=== PATIENT | male | born 1945 | race Caucasian/White ===

== ENCOUNTER 2020-04-01 06:54 | Outpatient (NON) | payer MEDICARE, SELFPAY ==
[2020-04-01 22:32] LABS: SARS-CoV-2 RNA PCR Negative
== END 2020-04-01 06:55 ==
PROVIDERS: PCP Family Medicine Adolescent Medicine; Visit Provider Family Medicine Adolescent Medicine
DX: Z20.828 Contact with and (suspected) exposure to other viral communicable diseases (principal); R05 Cough; R53.83 Other fatigue
CPT/HCPCS: 87635; C9803; U0003

== ENCOUNTER 2021-08-10 01:20 | Day surgery (SDC) | payer MEDICARE, SELFPAY ==
[2021-07-28 14:15] VITALS: BMI 29.2
[2021-08-10 11:12] VITALS: BP 129/72; PULSE 91; RESP 18; TEMP 36.2; O2SAT 98; BMI 29.2
--- NOTE | 2021-08-10 11:18 | WPDGICN ---
Assessment and Plan Assessment and plan (1) Encounter for screening colonoscopy: Code(s): Z12.11 - Encounter for screening for malignant neoplasm of colon Status: Acute Assessment and Plan: Patient presents for screening colonoscopy. Has never had screening previously. Plan is for high-fiber diet. Further recommendations will be given after endoscopy. (2) Rectal bleeding: Code(s): K62.5 - Hemorrhage of anus and rectum Status: Acute Assessment and Plan: Patient has rectal bleeding attributed to hemorrhoids. Plan is for fiber in his diet Metamucil is beneficial in should be continued. Further recommendations may be given after evaluation with colonoscopy. (3) Chronic obstructive pulmonary disease, unspecified: Code(s): J44.9 - Chronic obstructive pulmonary disease, unspecified Status: Acute GI Consult Note Consult date/time: 08/10/21 11:18 HPI: Allen Fields is a 75 year old male Presents for screening colonoscopy. Patient reports his weight appetite bowel movements are normal. He has occasional bright red blood per rectum that often happens at night. This is improved over recent weeks. Patient has never had a screening colonoscopy and presents for that today. Past medical history is significant for COPD. Family history is noncontributory. Review of Systems Review of Systems: All systems reviewed & are unremarkable except as noted in HPI and below PMFSH Past Medical History Medical History Hx of essential hypertension Family History Family History Father Alzheimer's dementia Mother Heart disease Social History Social History Smoking packs per day: 1.5 Smoking cigarettes per day: 30.0 Years smoked: 60 Smoking pack-years: 90.00 Smoking status: Current every day smoker Tobacco type: cigarettes Second hand tobacco smoke exposure: No Alcohol intake: current Drinks per week: 5 Substance use: never Substance use type: does not use Living arrangements: with family Gender identity (if verbalized by the patient): Male Sexual Orientation (if Verbalized by the Patient): Straight or Heterosexual Spiritual care concerns: No Agree to blood products: Yes Meds Home Medications and Allergies Home Medications Medication Instructions Recorded Confirmed Type losartan 100 mg tablet 100 mg PO DAILY 05/26/21 07/28/21 History finasteride 5 mg tablet 5 mg PO DAILY 05/27/21 07/28/21 History tamsulosin 0.4 mg capsule 0.4 mg PO DAILY 05/27/21 07/28/21 History diltiazem HCl 240 mg 240 mg PO DAILY #90 cap 06/07/21 07/28/21 Rx capsule,extended release 24 hr psyllium husk [Metamucil] 1 tbsp PO DAILY 07/28/21 07/28/21 History indapamide 2.5 mg tablet 2.5 mg PO DAILY #90 tablet 08/08/21 08/10/21 Rx metoprolol tartrate 100 mg tablet 100 mg PO BID #180 tablet 08/08/21 08/10/21 Rx simvastatin 20 mg tablet 20 mg PO DAILY #90 tablet 08/08/21 08/10/21 Rx Allergies Allergy/AdvReac Type Severity Reaction Status Date / Time No Known Allergies Allergy Verified 08/10/21 11:11 Vital Signs Vital Signs - 24 hr 08/10/21 11:12 Temperature 97.2 F L Pulse Rate 91 Respiratory Rate 18 Blood Pressure 129/72 Pulse Oximetry 98 Exam Narrative: Physical exam reveals patient to be alert. Vital signs stable. HEENT exam is unremarkable. Patient is anicteric. Lungs are clear to auscultation and percussion. Heart is without murmur or extra sounds. Abdomen bowel sounds present soft nontender with no organomegaly. Digital external rectal exam is normal.
[2021-08-10] MEDS: LACTATED RINGERS 1,000 ML 150 ML IV CONT (11:29)
--- NOTE | 2021-08-10 12:44 | P.PNAN_ITS ---
Anes - Initial Pre Proc Eval Procedure: Operation Date: 08/10/21 12:30 Proposed Procedures p Screening Colonoscopy - Lewis Graff MD Date/Time: 08/10/21 12:44 Surgeon: Lewis Graff MD Pre Op Diagnosis: neoplasm screening Patient Data Age: 75 Gender: M Height: 1.83 m Weight: 97.6 kg Last Vital Signs Temp 97.2 F L 08/10/21 11:12 Pulse 91 08/10/21 11:12 Resp 18 08/10/21 11:12 BP 129/72 08/10/21 11:12 Pulse Ox 98 08/10/21 11:12 Allergies Allergy/AdvReac Type Severity Reaction Status Date / Time No Known Allergies Allergy Verified 08/10/21 11:11 Home Medications Medication Instructions Recorded Confirmed Type losartan 100 mg tablet 100 mg PO DAILY 05/26/21 07/28/21 History finasteride 5 mg tablet 5 mg PO DAILY 05/27/21 07/28/21 History tamsulosin 0.4 mg capsule 0.4 mg PO DAILY 05/27/21 07/28/21 History diltiazem HCl 240 mg 240 mg PO DAILY #90 cap 06/07/21 07/28/21 Rx capsule,extended release 24 hr psyllium husk [Metamucil] 1 tbsp PO DAILY 07/28/21 07/28/21 History indapamide 2.5 mg tablet 2.5 mg PO DAILY #90 tablet 08/08/21 08/10/21 Rx metoprolol tartrate 100 mg tablet 100 mg PO BID #180 tablet 08/08/21 08/10/21 Rx simvastatin 20 mg tablet 20 mg PO DAILY #90 tablet 08/08/21 08/10/21 Rx Patient hx anesthesia problems: none Family hx anesthesia problems: none Results Review: All pre-operative results and documents have been reviewed as part of the pre-operative evaluation. [facility] Past Medical History Medical History Hx of essential hypertension Family History Family History Father Alzheimer's dementia Mother Heart disease Social History Social History Smoking packs per day: 1.5 Smoking cigarettes per day: 30.0 Years smoked: 60 Smoking pack-years: 90.00 Smoking status: Current every day smoker Tobacco type: cigarettes Second hand tobacco smoke exposure: No Alcohol intake: current Drinks per week: 5 Substance use: never Substance use type: does not use Living arrangements: with family Gender identity (if verbalized by the patient): Male Sexual Orientation (if Verbalized by the Patient): Straight or Heterosexual Spiritual care concerns: No Agree to blood products: Yes Anes - Eval Final PreProcedure Day of Procedure 08/10/21 12:44 Patient weight: obese Heart: regular rate and rhythm Lungs: clear to auscultation Airway: Mallampati scale class II Neurological: alert and oriented Last oral intake: >/= 8 hours ASA classification: III Emergent: no Anesthetic plan: proceed Anesthesia type and monitoring: general GIVS and standard monitoring Results Review: All pre-operative results and documents have been reviewed as part of the pre-operative evaluation. Informed Consent: The patient's anesthetic plan and its attendant risks and benefits were discussed with the patient/family/POA. Questions were solicited and answers provided to the satisfaction of the patient/family/POA.
[2021-08-10 13:05] VITALS: BP 102/99; PULSE 79; RESP 24; O2SAT 96
[2021-08-10 13:15] VITALS: BP 112/60; PULSE 87; RESP 26; O2SAT 99
[2021-08-10 13:25] VITALS: BP 131/74; PULSE 74; RESP 22; O2SAT 100
== END 2021-08-10 13:35 | disposition home or self-care (01) ==
PROVIDERS: PCP Family Medicine Adolescent Medicine; Visit Provider Internal Medicine Gastroenterology
PROC: 0DJD8ZZ Inspection of Lower Intestinal Tract, Via Natural or Artificial Opening Endoscopic (ICD-10-PCS; CPT 45378; principal; 2021-08-10 12:30)
DX: Z12.11 Encounter for screening for malignant neoplasm of colon (principal); K62.5 Hemorrhage of anus and rectum; K64.8 Other hemorrhoids; K57.30 Diverticulosis of large intestine without perforation or abscess without bleeding; J44.9 Chronic obstructive pulmonary disease, unspecified; I10 Essential (primary) hypertension; F17.210 Nicotine dependence, cigarettes, uncomplicated; E66.9 Obesity, unspecified; Z68.29 Body mass index [BMI] 29.0-29.9, adult
CPT/HCPCS: G0121; J2704; J7120

== ENCOUNTER 2023-01-31 09:52 | Outpatient (CLI) | payer MEDICARE, SELFPAY ==
--- NOTE | 2023-01-31 10:07 | ECG_ITS ---
Measurements Intervals [place] Rate: 51 P: NV: 0 QRS: -1 QRSD: 115 T: 36 QT: 437 QTc: 405 Interpretive Statements ATRIAL FIBRILLATION WITH SLOW VENTRICULAR RESPONSE LOW QRS VOLTAGE IN EXTREMITY LEADS [QRS DEFLECTION < 0.5 mV IN LIMB LEADS] POSSIBLE ANTERIOR MYOCARDIAL INFARCTION [30 ms Q WAVE IN V3/V4, OR R < 0.2 mV IN V4], PROBABLY OLD ABNORMAL RHYTHM ECG NO PREVIOUS ECG AVAILABLE FOR COMPARISON Electronically Signed On 01-31-2023 15:02:07 CDT by Wilma Kelsey M.D.
[2023-01-31 10:32] LABS: Anion Gap 3 mmol/L (8-16); Blood Urea Nitrogen 9 mg/dL (9-20); Calcium 9.4 mg/dL (8.4-10.2); Carbon Dioxide 35 mmol/L (22-30); Chloride 93 mmol/L (98-107); Estimated Glomerular Filt Rate > 60; Glucose 142 mg/dL (65-110); Potassium 3.7 mmol/L (3.4-5.0); Sodium 131 mmol/L (137-145)
== END 2023-01-31 09:53 | disposition home or self-care (01) ==
PROVIDERS: Anesthesiology; PCP Family Medicine Adolescent Medicine; Visit Provider Surgery
DX: I10 Essential (primary) hypertension (principal); I48.91 Unspecified atrial fibrillation
CPT/HCPCS: 36415; 80048; 93005

== ENCOUNTER 2023-02-03 01:31 | Day surgery (SDC) | payer MEDICARE, SELFPAY ==
--- NOTE | 2023-01-30 15:04 | PC.NURSE ---
Report to the Outpatient Waiting Room, entrance under the green pavilion located off [facility], at time __1100 on date __02/03/23 . Planned Procedure Time: __1300 . Time changes happen often and if your time is changed the preop area will call you the afternoon before. - You and your visitor will be asked to self-screen and do not enter if you have any COVID symptoms. - A mask is optional within the hospital at this time. Patients may have clear liquids (water, carbonated beverages, clear teas, apple juice) until 3 hours prior to surgery with a maximum of 20 ounces. - No food from midnight until time of surgery - Infants may have breast milk until 4 hours before surgery, formula 6 hours prior to surgery. - Children will be allowed to drink immediately following surgery. If applicable, please bring a bottle or sippy cup to assist with drinking. Juice, water, soda, and popsicles are readily available. For infants on formula, please bring formula the day of surgery. Pacifiers are allowed. Take the following medications with a SIP of water the morning of surgery: __DILTIAZEM AND METOPROLOL DO NOT STOP ANY OF YOUR OTHER PRESCRIPTION MEDICATIONS PRIOR TO SURGERY ?EXCEPT THE FOLLOWING Medications to discontinue per physician NONE Please no make-up, nail upper sorbian, hairspray, perfume, deodorant, or body powder the day of surgery. No jewelry (including any body piercings) or valuables the day of surgery, leave them at home. Please take a shower or bath the night before, or the morning of, surgery with an antibacterial soap. Wear comfortable, loose fitting clothing. Children are encouraged to wear pajamas. - Jewelry must be removed prior to entering the operating room. Rings and piercings that are not removed may be cut off. - The hospital will not accept responsibility for valuables. - Please leave all valuables, including medications, at home the day of surgery. If you are going home after surgery, a licensed local owner operator truck driver must drive you home. - NO public transportation without another adult if you receive anesthesia. - We recommend that an adult stay with you for 24 hours following discharge. - We also recommend that you do not drive, make important decision, drink alcoholic beverages, or take any drugs that were not prescribed by your health care provider for at least 24 hours after your discharge time. Follow any additional instructions given to you from your surgeon. If you or anyone in your household have experienced Covid symptoms in the past week, please notify your surgeon or the nurse liaison at the phone number below for possible testing. Telephone instructions given to __PATIENT and asked if any additional questions and then verbalized understanding. Patient advised to call surgeon office or pre surgery nurse liaison [phone] if any additional questions.
[2023-01-30 15:12] VITALS: BMI 29.2
[2023-02-03] VITALS (8 sets, daily range): BP systolic 95–154; BP diastolic 55–86; PULSE 57–75; RESP 11–18; TEMP 36.4–36.8; O2SAT 95–100
[2023-02-03] MEDS: LACTATED RINGERS 1,000 ML 30 ML IV CONT (11:00)
[2023-02-03] MEDS: ACETAMINOPHEN 500 MG TABLET 1000 MG PO (11:00)
[2023-02-03] MEDS: KETOROLAC 15 MG/ML VIAL (*BKC) IV PUSH (11:00)
[2023-02-03 11:04] LABS: Sodium 134 mmol/L (137-145)
--- NOTE | 2023-02-03 11:41 | WPDHPUPDATE1 ---
History and Physical Update Update Date/Time: 02/03/23 11:41 History and Physical has been reviewed, including an updated exam of the patient. There are NO changes in the patient's condition. Risks, benefits, and alternatives have been discussed and questions answered. Patient agrees to proceed with procedure.
--- NOTE | 2023-02-03 11:50 | WPDANESEPPF ---
Anes - Initial Pre Proc Eval Procedure: Operation Date: 02/03/23 12:00 Proposed Procedures p Rectal Examination Under Anesthesia, Internal and External Hemorrhoidectomy Times One Column - Cullen Ansari DO Date/Time: 02/03/23 11:50 Surgeon: Cullen Ansari DO Pre Op Diagnosis: internal grade 3 hemorrhoids Patient Data Age: 77 Gender: M Height: 1.83 m Weight: 91.5 kg Last Vital Signs Temp 36.4 C L 02/03/23 11:23 Pulse 73 02/03/23 11:23 Resp 14 02/03/23 11:23 BP 154/86 H 02/03/23 11:23 Pulse Ox 100 02/03/23 11:23 O2 Del Method Room Air 02/03/23 11:23 Allergies Allergy/AdvReac Type Severity Reaction Status Date / Time No Known Allergies Allergy Verified 02/03/23 11:21 Home Medications Medication Instructions Recorded Confirmed Type finasteride 5 mg tablet 5 mg PO DAILY 05/27/21 02/03/23 History diltiazem HCl 240 mg 240 mg PO DAILY #90 caps 05/23/22 02/03/23 Rx capsule,extended release 24 hr indapamide 2.5 mg tablet 2.5 mg PO DAILY #90 tabs 11/07/22 02/03/23 Rx simvastatin 20 mg tablet 20 mg PO DAILY #90 tabs 11/07/22 02/03/23 Rx metoprolol tartrate 100 mg tablet 100 mg PO DAILY 01/30/23 02/03/23 History Laboratory Tests 02/03/23 10:51 Sodium 134 L mmol/L (137-145) Patient hx anesthesia problems: none Family hx anesthesia problems: none Results Review: All pre-operative results and documents have been reviewed as part of the pre-operative evaluation. [facility] Past Medical History Medical History (Updated 02/03/23 @ 11:50 by Terrance Combs MD) Hx of essential hypertension Paroxysmal atrial fibrillation Tobacco abuse Family History Family History Father Alzheimer's dementia Mother Heart disease Social History Social History Smoking packs per day: 1.5 Smoking cigarettes per day: 30.0 Years smoked: 60 Smoking pack-years: 90.00 Smoking status: Current every day smoker Tobacco type: cigarettes Second hand tobacco smoke exposure: No Alcohol intake: current Drinks per week: 5 Substance use: never Substance use type: does not use Living arrangements: with family Occupation/Education: retired Gender identity (if verbalized by the patient): Male Sexual Orientation (if Verbalized by the Patient): Straight or Heterosexual Spiritual care concerns: No Agree to blood products: Yes Anes - Eval Final PreProcedure Day of Procedure 02/03/23 11:50 Patient weight: overweight Heart: irregular rhythm Lungs: decreased breath sounds Airway: Mallampati scale class II Neurological: alert and oriented Last oral intake: >/= 8 hours ASA classification: III Emergent: no Anesthetic plan: proceed Anesthesia type and monitoring: general LMA and standard monitoring Results Review: All pre-operative results and documents have been reviewed as part of the pre-operative evaluation. Informed Consent: The patient's anesthetic plan and its attendant risks and benefits were discussed with the patient/family/POA. Questions were solicited and answers provided to the satisfaction of the patient/family/POA.
[2023-02-03] MEDS: ceFAZolin 2 GM/D5W 50 ML 2 GM/50 ML BAG IVPB (12:00)
[2023-02-03] MEDS: LIDO 1%/EPINEPHRINE 1:100,000 20 ML VIAL INFILTRATE (12:25)
--- NOTE | 2023-02-03 12:54 | W.PM.PROC2 ---
Procedure Note - Detailed Date of Procedure 02/03/23 Pre-op Diagnosis internal grade 3 hemorrhoids, external hemorrhoids Post-op Diagnosis Same Procedure Performed 1. Rectal exam under anesthesia 2. Internal and external hemorrhoidectomy x1 column 3. Internal hemorrhoid rubber banding x1 Surgeon Cullen Ansari, DO Anesthesia General (LMA) and Local (1% lidocaine with epi) Indications This is a 77-year-old man who presented with recurrent rectal bleeding. He was found to prolapsing internal and external hemorrhoids particularly in the right anterior location. Discussions were made with the patient about treatment options and decision was made to proceed with rectal exam under anesthesia with internal and external hemorrhoidectomy x1 column. Findings Rectal exam under anesthesia was performed. The patient was found to have an enlarged erythematous internal hemorrhoid prolapsing along with external hemorrhoid tissue in the right anterior location. He had some slightly prolapsing hemorrhoid tissue along the left side as well but this did not appear to be as bad. In internal and external hemorrhoidectomy was performed in the right anterior location. He had some mild prolapsing internal hemorrhoid tissue in the left posterior location therefore a rubber band was placed the hemorrhoid at this location. The right anterior hemorrhoid was sent to the lab for pathology. Description of Procedure Procedure as well as risks, benefits, and alternatives were discussed with the patient. Written consent was obtained and placed in chart prior to procedure. Patient was brought back to surgical suite. He was placed supine on operating table. Time-out was done to confirm patient and procedure. He was then intubated by the anesthesia department. He was then placed in dorsal lithotomy position on the operating table. His perirectal area was prepped and draped in sterile fashion using Betadine prep. 1% lidocaine with epinephrine was infiltrated locally around the perirectal region. A digital rectal exam was initially performed. A medium Hill-Kellogg anoscope was then inserted in the anorectal canal was carefully inspected. A Fansler anoscope was then inserted as well in the anal rectal canal was inspected further. I oriented the scope to where I could identify the right anterior hemorrhoid bundle. A 2-0 chromic [id number] suture was placed at the apex of the internal hemorrhoid bundle. An elliptical incision was then made on the anoderm and external hemorrhoid tissue using a 15 blade scalpel and this was extended into the anal mucosa. The hemorrhoid tissue was then carefully lifted off of the sphincter muscle fibers using electrocautery and blunt dissection. A curved clamp was then placed across the hemorrhoid bundle and it was then cut away using curved Smith scissors. The 2-0 chromic suture was then run from the apex of the hemorrhoid bundle distally to the anal verge and then back proximally over the clamp. The clamp was then removed and the suture was pulled taut. Running locking suture was then run distally again to help with hemostasis. The area was irrigated with sterile saline and hemostasis appeared adequate. The anoderm was then reapproximated using 3-0 chromic simple interrupted sutures. 1% lidocaine with epinephrine was infiltrated more around this area to help with pain control. The area was inspected and no further significant hemorrhoid tissue was noted in this location. There was still some prolapsing internal hemorrhoid tissue in the left posterior location. A rubber band was placed along the internal hemorrhoid tissue in this location. One final inspection was made around the anorectal canal and no other abnormalities were identified. A Gelfoam roll was then placed within the anal canal. Fluff gauze, ABD pad, and mesh underwear were then applied. The patient was then awakened from anesthesia, extubated, and transferred to recovery. [place]
== END 2023-02-03 14:55 | disposition home or self-care (01) ==
PROVIDERS: Anesthesiology; PCP Family Medicine Adolescent Medicine; Visit Provider Surgery
PROC: (CPT 46255; principal; 2023-02-03 12:00)
DX: K64.2 Third degree hemorrhoids (principal); K64.4 Residual hemorrhoidal skin tags; D12.8 Benign neoplasm of rectum; I10 Essential (primary) hypertension; F17.290 Nicotine dependence, other tobacco product, uncomplicated; I48.0 Paroxysmal atrial fibrillation
CPT/HCPCS: 46255; 36415; 84295; 88304; A9270; J0690; J1100; J1885; J2371; J2405; J2704; J3010; J7120